=== PATIENT | female | born 1945 | race Caucasian/White ===

== ENCOUNTER 2018-08-03 11:49 | Inpatient (IN) | payer MEDICARE, OTHER ==
[~2018-08-03 11:49] MED LIST: ISOVUE-370 76%-LOCM 1 ML ONE
[2018-08-03 12:30] LABS: #Basophils 0.1 thou/uL (0.0-0.2); #Eosinphils 0.2 thou/uL (0.0-0.7); #Lymphocytes 3.1 thou/uL (1.20-3.40); #Monocytes 0.8 thou/uL (0.11-0.59); %Basophils 0.8 % (0.0-1.0); %Lymphocytes 19.2 % (21.0-51.0); %Monocytes 4.7 % (0.0-10.0); %Neutrophils 74.3 % (42.0-75.0); Hemoglobin 13.1 g/dL (12.0-16.0); Mean Corpuscular HGB CONC 33.3 g/dL (32.0-36.0); Mean Corpuscular Hemoglobin 29.2 pg (27.0-31.0); Mean Corpuscular Volume 87.7 fL (78.0-98.0); Mean Platelet Volume 7.9 fL (7.4-10.4); Platelet Count 290 thou/uL (130-400); RBC Distribution Width 11.2 % (11.5-14.5); Red Blood Cell (RBC) Count 4.47 mill/uL (4.20-5.40); White Blood Cell (WBC) Count 16.1 thou/uL (4.8-10.8)
[2018-08-03] MEDS ORDERED: Ondansetron PF 4 MG/2 ML Vial ONE ×3 (12:38→14:47)
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
[2018-08-03 12:50] LABS: ALT (SGPT) 18 U/L (8-55); AST (SGOT) 24 U/L (5-34); Albumin 4.1 g/dL (3.4-4.8); Alkaline Phosphatase 90 U/L (40-150); Anion Gap 14 mmol/L (10-20); BUN (Urea Nitrogen) 14 mg/dL (9.8-20.1); Bilirubin, Total 0.5 mg/dL (0.2-1.2); Calc. Creatinine Clearance 0 mL/min (70-130); Calcium 9.2 mg/dL (7.8-10.44); Carbon Dioxide 22 mmol/L (23-31); Chloride 105 mmol/L (98-107); Estimated GFR-MDRD 62; Globulin 2.6 g/dL (2.4-3.5); Glucose 157 mg/dL (83-110); Potassium 3.3 mmol/L (3.5-5.1); Protein, Total 6.7 g/dL (6.0-8.3); Sodium 138 mmol/L (136-145)
[2018-08-03 13:21] LABS: Prothrombin Time 13.6 SEC (12.0-14.7)
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
[2018-08-03 13:39] LABS: PTT 26.8 SEC (22.9-36.1)
[2018-08-03] MEDS ORDERED: Ketorolac Tromethamine 30 MG/ML VIAL ONE ×2 (13:47→23:26)
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
[2018-08-03] MEDS ORDERED: Hydrocortisone Sod Succ/PF 100 mg/2 ml Vial ONE (14:03)
[2018-08-03] MEDS ORDERED: Hydrocortisone Sod Succ/PF 100 mg/2 ml Vial IVP SCH (14:15)
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
[2018-08-03] MEDS ORDERED: Morphine 4 MG/ML VIAL SLOW IVP PRN (14:39)
[2018-08-03] MEDS ORDERED: Dextrose 50% Abboject 50 ML SYRINGE SLOW IVP PRN (14:39)
[2018-08-03] MEDS ORDERED: Dextrose 5% in Water 1,000 ML IV PRN (14:39)
[2018-08-03] MEDS ORDERED: Ondansetron ODT 4 MG TAB PO PRN (14:39)
[2018-08-03] MEDS ORDERED: traMADol HCl 50 MG TAB PO PRN (14:39)
[2018-08-03 14:44] LABS: Hemoglobin 12.6 g/dL (12.0-16.0); Platelet Count 195 thou/uL (130-400)
[2018-08-03] MEDS ORDERED: Calcium Chloride 1 GM/10 ML Abboject SYRINGE ONE (14:46)
[2018-08-03] MEDS ORDERED: Adacel (T-DAP) 0.5 ML SYRINGE ONE (15:19)
[2018-08-03] MEDS ORDERED: CEFAZOLIN 2 GM in Premix Bag 1 BAG IVPB SCH (15:30)
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
[2018-08-03 15:45] LABS: Bilirubin Negative (Negative); Blood, Urine Negative (Negative); Clarity CLEAR (Clear); Glucose, Urine (Dipstick) Negative (Negative); Leukocyte Trace (Negative); Nitrite Negative (Negative); Protein, Urine (Dipstick) Negative (Neg-Trace); Urobilinogen 0.2 mg/dL (0.2-1.0)
[2018-08-03 15:47] LABS: Bacteria/HPF 1+ HPF (None Seen); Hyaline Casts/LPF 0-3 HYALINE CAST LPF (0-3 Hyaline); RBC/HPF 0-3 HPF (0-3); Squamous Epithelial 0-3 HPF (0-3)
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
[2018-08-03] MEDS: traMADol HCl 50 MG TAB PO SCH (17:40)
[2018-08-03] MEDS: Ketorolac Tromethamine 30 MG/ML VIAL IVP SCH (17:41)
[2018-08-03 17:42] LABS: Lactic Acid 2.8 mmol/L (0.5-2.2)
[2018-08-03] MEDS: Lactated Ringer's 1,000 ML IV SCH (17:42)
[2018-08-03] MEDS: Acetaminophen 1,000 MG in Premix Bag 1 BAG IVPB SCH (17:56)
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
[2018-08-03] MEDS ORDERED: traMADol HCl 50 MG TAB ONE (23:25)
[2018-08-04] MEDS ORDERED: Ketorolac Tromethamine 30 MG/ML VIAL ONE (05:33)
[2018-08-04] MEDS ORDERED: traMADol HCl 50 MG TAB ONE (05:34)
[2018-08-04] MEDS ORDERED: Ondansetron PF 4 MG/2 ML Vial ONE ×2 (06:57→16:35)
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
[2018-08-04] MEDS ORDERED: Loratadine 10 MG TAB PO SCH (09:00)
[2018-08-04] MEDS: Senokot S 8.6-50 MG TAB PO SCH ×4 (09:10→22:22)
[2018-08-04] MEDS: Famotidine/PF 20 mg/2ml Vial SLOW IVP SCH ×3 (09:10→22:21)
[2018-08-04] MEDS: Acetaminophen 1,000 MG in Premix Bag 1 BAG IVPB SCH ×3 (09:14→11:48)
[2018-08-04] MEDS: Lactated Ringer's 1,000 ML IV SCH ×2 (09:15→21:59)
[2018-08-04] MEDS: traMADol HCl 50 MG TAB PO SCH ×4 (09:15→21:59)
[2018-08-04] MEDS: Ketorolac Tromethamine 30 MG/ML VIAL IVP SCH ×3 (09:16→20:22)
[2018-08-04] MEDS: Polyethylene Glycol 3350 17 GM Packet PO SCH (09:29)
[2018-08-04] MEDS ORDERED: Senokot S 8.6-50 MG TAB ONE (09:56)
[2018-08-04] MEDS: Ondansetron PF 4 MG/2 ML Vial IVP PRN (11:23)
--- NOTE | 2018-08-04 11:53 | RAD ---
CHEST ONE VIEW: HISTORY: Chest pain. COMPARISON: Chest radiographs from the prior day. FINDINGS: Heart size is enlarged. No pneumothorax. No effusion. No focal consolidation. Severe degenerative changes of both shoulders. IMPRESSION: No acute intrathoracic abnormality. POS: [facility]
[2018-08-04] MEDS ORDERED: Sodium Chloride 0.9% 500 ML IV SCH (12:15)
[2018-08-04] MEDS ORDERED: Neomycin-Polymyxin 1 ML AMP ONE (13:31)
[2018-08-04] MEDS ORDERED: Fentanyl 100 MCG/2 ML VIAL ONE ×4 (14:01→19:15)
[2018-08-04 14:02] LABS: #Lymphocytes 1.9 thou/uL (1.20-3.40); #Monocytes 0.9 thou/uL (0.11-0.59); #Neutrophils 9.9 thou/uL (1.40-6.50); %Basophils 0.3 % (0.0-1.0); %Eosinophils 0.1 % (0.0-10.0); %Lymphocytes 14.8 % (21.0-51.0); %Monocytes 7.1 % (0.0-10.0); %Neutrophils 77.6 % (42.0-75.0); Mean Corpuscular HGB CONC 33.5 g/dL (32.0-36.0); Mean Corpuscular Hemoglobin 29.4 pg (27.0-31.0); Mean Corpuscular Volume 87.6 fL (78.0-98.0); Mean Platelet Volume 8.1 fL (7.4-10.4); Platelet Count 166 thou/uL (130-400); Red Blood Cell (RBC) Count 3.41 mill/uL (4.20-5.40); White Blood Cell (WBC) Count 12.7 thou/uL (4.8-10.8)
[2018-08-04 14:23] LABS: Anion Gap 12 mmol/L (10-20); BUN (Urea Nitrogen) 24 mg/dL (9.8-20.1); Calc. Creatinine Clearance 55 mL/min (70-130); Calcium 8.7 mg/dL (7.8-10.44); Carbon Dioxide 24 mmol/L (23-31); Chloride 106 mmol/L (98-107); Estimated GFR-MDRD 47; Glucose 107 mg/dL (83-110); Magnesium 1.5 mg/dL (1.6-2.6); Sodium 138 mmol/L (136-145)
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
[2018-08-04] MEDS ORDERED: Dexamethasone 20 MG/5 ML VIAL ONE (16:35)
[2018-08-04] MEDS ORDERED: PROPOFOL 200 MG/20 ML VIAL ONE (16:35)
[2018-08-04] MEDS ORDERED: PHENYLEPHRINE-NS 100 MCG/ML 10 ML SYRINGE ONE (16:35)
[2018-08-04] MEDS ORDERED: Rocuronium Bromide 10 MG/ML (10ML VIAL) ONE (16:35)
[2018-08-04] MEDS ORDERED: Succinylcholine Chloride 20 MG/ML 10 ml SYRINGE FS ONE (16:35)
[2018-08-04] MEDS ORDERED: Lidocaine 1% PF 5 ML VIAL ONE (16:35)
[2018-08-04] MEDS ORDERED: Metoclopramide HCl 10 MG/2 ML VIAL ONE ×2 (16:35→17:34)
[2018-08-04] MEDS ORDERED: Glycopyrrolate 0.2 MG/ML 5 ML SYRINGE ONE (16:35)
[2018-08-04] MEDS ORDERED: ePHEDrine 50 MG/ML VIAL ONE (16:35)
[2018-08-04] MEDS ORDERED: Magnesium Sulfate 4 GM in Sodium Chloride 0.9% 250 ML 250 ML IVPB SCH (17:15)
[2018-08-04] MEDS ORDERED: Phenylephrine HCL 10 MG/ML VIAL ONE (17:34)
[2018-08-04] MEDS ORDERED: HYDROmorphone 2 MG/ML VIAL ONE (18:07)
--- NOTE | 2018-08-04 18:22 | RAD ---
LEFT ANKLE THREE VIEWS: 08/04/18 HISTORY: Intraoperative films. These films shows open reduction and internal fixation of the distal fibular fracture with plate and screws. Comminuted distal tibial fracture is also again noted. IMPRESSION: Open reduction and internal fixation of distal fibular fracture. POS: OFF
--- NOTE | 2018-08-04 18:28 | RAD ---
RIGHT FEMUR TWO VIEWS: 08/04/18 HISTORY: Intraoperative film. There has been open reduction and internal fixation of a more distal femur fracture with plate and sc rews. IMPRESSION: Open reduction and internal fixation of comminuted distal femoral shaft fracture. POS: OFF
[2018-08-04] MEDS ORDERED: Meperidine HCl/PF 25 MG/ML VIAL SLOW IVP PRN (18:37)
[2018-08-04] MEDS ORDERED: Promethazine HCl 25 MG/ML VIAL IM PRN (18:37)
[2018-08-04] MEDS ORDERED: Promethazine HCl 25 MG/ML VIAL SLOW IVP PRN (18:37)
[2018-08-04] MEDS ORDERED: PACU-Morphine 4MG/ML VIAL SLOW IVP PRN (18:37)
[2018-08-04 18:44] LABS: #Lymphocytes 2.1 thou/uL (1.20-3.40); #Monocytes 0.9 thou/uL (0.11-0.59); #Neutrophils 9.3 thou/uL (1.40-6.50); %Basophils 0.4 % (0.0-1.0); %Eosinophils 0.1 % (0.0-10.0); %Lymphocytes 17.1 % (21.0-51.0); %Neutrophils 75.4 % (42.0-75.0); Hemoglobin 8.6 g/dL (12.0-16.0); Mean Corpuscular HGB CONC 32.4 g/dL (32.0-36.0); Mean Corpuscular Hemoglobin 28.6 pg (27.0-31.0); Mean Corpuscular Volume 88.1 fL (78.0-98.0); Mean Platelet Volume 7.6 fL (7.4-10.4); Platelet Count 142 thou/uL (130-400); RBC Distribution Width 14.1 % (11.5-14.5); White Blood Cell (WBC) Count 12.4 thou/uL (4.8-10.8)
[2018-08-04] MEDS ORDERED: Propofol 500 MG/50 ML VIAL ONE (19:14)
[2018-08-04] MEDS ORDERED: PROPOFOL 20 ML ONE (19:14)
[2018-08-04] MEDS ORDERED: Rocuronium Bromide 50 MG/5 ML VIAL ONE (19:15)
[2018-08-04] MEDS ORDERED: Lorazepam 2 MG/ML VIAL SLOW IVP PRN ×2 (19:25→20:40)
[2018-08-04] MEDS ORDERED: Propofol BOLUS 1,000 MG/100 ML VIAL IV PRN ×2 (19:25→20:40)
[2018-08-04] MEDS ORDERED: Fentanyl BOLUS 250 ML IVPB PRN ×2 (19:25→20:40)
[2018-08-04] MEDS ORDERED: Morphine 2 MG/ML SYRINGE SLOW IVP PRN ×2 (19:25→20:40)
[2018-08-04] MEDS ORDERED: fentaNYL Citrate/PF 2,000 MCG in Sodium Chloride 0.9% 60 ML IV SCH ×2 (19:25→19:38)
[2018-08-04] MEDS ORDERED: DISCONTINUE PREVIOUS NARCOTIC PAIN MEDICATIONS AND BENZODIAZEPINES FS SCH ×2 (19:25→20:40)
[2018-08-04] MEDS ORDERED: Ventilator Sedation Protocol 1 EACH FS SCH (19:30)
[2018-08-04] MEDS ORDERED: Propofol 1,000 MG/100 ML VIAL IV PRN (19:38)
[2018-08-04 19:49] LABS: Hemoglobin 11.8 g/dL (12.0-16.0); Red Blood Cell (RBC) Count 4.18 mill/uL (4.20-5.40); White Blood Cell (WBC) Count 14.1 thou/uL (4.8-10.8)
[2018-08-04 19:50] LABS: #Lymphocytes 1.8 thou/uL (1.20-3.40); #Neutrophils 11.2 thou/uL (1.40-6.50); %Basophils 0.1 % (0.0-1.0); %Lymphocytes 12.9 % (21.0-51.0); %Monocytes 7.4 % (0.0-10.0); %Neutrophils 79.6 % (42.0-75.0); Mean Corpuscular HGB CONC 32.7 g/dL (32.0-36.0); Mean Corpuscular Hemoglobin 28.4 pg (27.0-31.0); Mean Corpuscular Volume 86.7 fL (78.0-98.0); Mean Platelet Volume 8.3 fL (7.4-10.4); Platelet Count 185 thou/uL (130-400); RBC Distribution Width 14.2 % (11.5-14.5)
[2018-08-04 19:51] LABS: INR-International Normal Ratio 1.2; PTT 29.3 SEC (22.9-36.1)
--- NOTE | 2018-08-04 19:51 | RAD ---
PORTABLE CHEST: 08/04/18 HISTORY: Intubation. Heart size is borderline. The aorta is tortuous. Endotracheal tube is in satisfactory position. Subse gmental atelectatic changes are see in the lung bases. A right humeral neck fracture is present. IMPRESSION: 1. Endotracheal tube in satisfactory position. 2. Bibasilar atelectasis. POS: OFF
[2018-08-04 20:00] LABS: Anion Gap 12 mmol/L (10-20); BUN (Urea Nitrogen) 19 mg/dL (9.8-20.1); Carbon Dioxide 21 mmol/L (23-31); Chloride 104 mmol/L (98-107); Sodium 133 mmol/L (136-145)
[2018-08-04 20:01] LABS: ALT (SGPT) 17 U/L (8-55); AST (SGOT) 26 U/L (5-34); Albumin 3.4 g/dL (3.4-4.8); Alkaline Phosphatase 66 U/L (40-150); Bilirubin, Total 0.7 mg/dL (0.2-1.2); Calc. Creatinine Clearance 64 mL/min (70-130); Calcium 9.2 mg/dL (7.8-10.44); Estimated GFR-MDRD 56; Globulin 2.1 g/dL (2.4-3.5); Glucose 145 mg/dL (83-110); Protein, Total 5.5 g/dL (5.8-8.1)
[2018-08-04 20:33] LABS: Actual Bicarbonate (HCO3a) 22.1 mEq/L (22-28); Base Excess (BEa) -4.4 mEq/L (-2.0 to +3.0); CO2 Tension 46.7 mmHg (35.0-45.0); Calcium, Ionized 1.13 mmol/L (1.12-1.30); Carboxyhemoglobin (COHb) 0.4 gm% (0.0-3.0); O2 Tension (PaO2) 69.8 mmHg (> 70.0); Potassium - ABG Lab 4.31 mmol/L (3.70-5.30); pH, Arterial 7.29 (7.35-7.45)
[2018-08-04 20:41] LABS: ALV-art Gradient 228.325 (0-20); Puncture Site LBA
[2018-08-04] MEDS ORDERED: Sodium Chloride 0.9% 1,000 ML IV SCH (21:30)
[2018-08-04] MEDS: Melatonin 3 MG TAB PO SCH (21:54)
[2018-08-04] MEDS ORDERED: CEFAZOLIN 1 GM in Sodium Chloride 0.9% 100 ML IVPB SCH (22:00)
[2018-08-04] MEDS: Simvastatin 5 MG TAB PO SCH (22:22)
[2018-08-04] MEDS: ceFAZolin 1 GM/D5W 1 GM in Premix Bag 1 BAG IVPB SCH (22:26)
[2018-08-05 00:16] LABS: #Lymphocytes 0.9 thou/uL (1.20-3.40); #Monocytes 0.4 thou/uL (0.11-0.59); #Neutrophils 10.2 thou/uL (1.40-6.50); %Basophils 0.2 % (0.0-1.0); %Eosinophils 0.1 % (0.0-10.0); %Lymphocytes 7.9 % (21.0-51.0); %Monocytes 3.8 % (0.0-10.0); %Neutrophils 88.1 % (42.0-75.0); Hemoglobin 10.7 g/dL (12.0-16.0); Mean Corpuscular HGB CONC 33.8 g/dL (32.0-36.0); Mean Corpuscular Hemoglobin 30.5 pg (27.0-31.0); Mean Corpuscular Volume 90.3 fL (78.0-98.0); Mean Platelet Volume 7.9 fL (7.4-10.4); Platelet Count 128 thou/uL (130-400); Red Blood Cell (RBC) Count 3.51 mill/uL (4.20-5.40); White Blood Cell (WBC) Count 11.6 thou/uL (4.8-10.8)
[2018-08-05] MEDS: Propofol 1,000 MG/100 ML VIAL IV PRN ×2 (02:17→12:01)
[2018-08-05] MEDS: Sodium Chloride 0.9% 1,000 ML IV SCH ×3 (03:06→19:49)
[2018-08-05] MEDS: ceFAZolin 1 GM/D5W 1 GM in Premix Bag 1 BAG IVPB SCH ×2 (06:20→14:39)
[2018-08-05 06:44] LABS: #Monocytes 0.6 thou/uL (0.11-0.59); #Neutrophils 7.9 thou/uL (1.40-6.50); %Basophils 0.2 % (0.0-1.0); %Eosinophils 0.1 % (0.0-10.0); %Lymphocytes 10.7 % (21.0-51.0); %Monocytes 5.9 % (0.0-10.0); %Neutrophils 83.1 % (42.0-75.0); Hemoglobin 9.2 g/dL (12.0-16.0); Mean Corpuscular HGB CONC 34.2 g/dL (32.0-36.0); Mean Corpuscular Hemoglobin 30.6 pg (27.0-31.0); Mean Corpuscular Volume 89.5 fL (78.0-98.0); Platelet Count 114 thou/uL (130-400); RBC Distribution Width 13.9 % (11.5-14.5); White Blood Cell (WBC) Count 9.5 thou/uL (4.8-10.8)
[2018-08-05 06:58] LABS: Lactic Acid 2.3 mmol/L (0.5-2.2)
[2018-08-05 07:11] LABS: Anion Gap 7 mmol/L (10-20); BUN (Urea Nitrogen) 20 mg/dL (9.8-20.1); CK (CPK) 589 U/L (29-168); Calc. Creatinine Clearance 81 mL/min (70-130); Calcium 7.6 mg/dL (7.8-10.44); Carbon Dioxide 24 mmol/L (23-31); Chloride 112 mmol/L (98-107); Estimated GFR-MDRD 69; Glucose 113 mg/dL (83-110); Magnesium 2.1 mg/dL (1.6-2.6); Phosphorus 2.1 mg/dL (2.3-4.7); Potassium 3.7 mmol/L (3.5-5.1); Sodium 139 mmol/L (136-145)
[2018-08-05] MEDS ORDERED: Potassium Phosphate 30 MMOL in Sodium Chloride 0.9% 500 ML IVPB SCH (07:30)
--- NOTE | 2018-08-05 07:54 | RAD ---
SINGLE VIEW OF THE CHEST: COMPARISON: 08/04/2018. HISTORY: Intubated patient with respiratory failure. FINDINGS: A single view of the chest shows a cardiomediastinal silhouette which is upper limits of normal in si ze. The endotracheal tube and NG tubes are in good position. There is no evidence of consolidation, mass, or pleural effusion. Degenerative changes are seen in the spine and shoulders. IMPRESSION: Stable exam. POS: [facility]
[2018-08-05] MEDS ORDERED: Magnesium Sulfate 3 GM in Sodium Chloride 0.9% 100 ML IVPB SCH (08:00)
[2018-08-05] MEDS: Famotidine/PF 20 mg/2ml Vial SLOW IVP SCH ×2 (09:32→20:51)
[2018-08-05] MEDS: Polyethylene Glycol 3350 17 GM Packet PO SCH (09:32)
[2018-08-05] MEDS: Citalopram 20 MG TAB PO SCH (09:33)
[2018-08-05] MEDS: Senokot S 8.6-50 MG TAB PO SCH ×2 (09:33→20:51)
[2018-08-05] MEDS: Cetirizine HCl 10 MG TAB PO SCH (09:41)
[2018-08-05] MEDS: Ampicillin 2 GM in Sodium Chloride 0.9% 100 ML IVPB SCH ×3 (12:02→23:02)
[2018-08-05] MEDS ORDERED: Furosemide 20 MG/2 ML VIAL SLOW IVP SCH (13:00)
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
[2018-08-05] MEDS: Acetaminophen 1,000 MG in Premix Bag 1 BAG IVPB PRN (20:49)
[2018-08-05] MEDS: Simvastatin 5 MG TAB PO SCH (20:50)
[2018-08-05] MEDS: Melatonin 3 MG TAB PO SCH (22:05)
[2018-08-06] MEDS: Sodium Chloride 0.9% 1,000 ML IV SCH ×3 (03:34→20:25)
[2018-08-06 03:39] LABS: #Lymphocytes 1.5 thou/uL (1.20-3.40); #Monocytes 0.8 thou/uL (0.11-0.59); #Neutrophils 7.5 thou/uL (1.40-6.50); %Basophils 0.3 % (0.0-1.0); %Eosinophils 0.1 % (0.0-10.0); %Lymphocytes 14.7 % (21.0-51.0); %Monocytes 8.5 % (0.0-10.0); %Neutrophils 76.4 % (42.0-75.0); Mean Corpuscular HGB CONC 33.3 g/dL (32.0-36.0); Mean Corpuscular Volume 90.4 fL (78.0-98.0); Mean Platelet Volume 7.6 fL (7.4-10.4); Platelet Count 125 thou/uL (130-400); RBC Distribution Width 14.1 % (11.5-14.5); Red Blood Cell (RBC) Count 3.01 mill/uL (4.20-5.40); White Blood Cell (WBC) Count 9.9 thou/uL (4.8-10.8)
[2018-08-06 04:04] LABS: Anion Gap 9 mmol/L (10-20); BUN (Urea Nitrogen) 18 mg/dL (9.8-20.1); Calc. Creatinine Clearance 84 mL/min (70-130); Calcium 7.8 mg/dL (7.8-10.44); Carbon Dioxide 27 mmol/L (23-31); Chloride 109 mmol/L (98-107); Estimated GFR-MDRD 72; Glucose 98 mg/dL (83-110); Magnesium 2.4 mg/dL (1.6-2.6); Phosphorus 2.6 mg/dL (2.3-4.7); Sodium 141 mmol/L (136-145)
[2018-08-06] MEDS: Ampicillin 2 GM in Sodium Chloride 0.9% 100 ML IVPB SCH ×4 (05:28→23:38)
[2018-08-06] MEDS: Enoxaparin Sodium 40 MG/0.4 ML SYRINGE SC SCH (09:17)
[2018-08-06] MEDS: Citalopram 20 MG TAB PO SCH (09:18)
[2018-08-06] MEDS: Polyethylene Glycol 3350 17 GM Packet PO SCH (09:18)
[2018-08-06] MEDS: Famotidine/PF 20 mg/2ml Vial SLOW IVP SCH ×2 (09:18→20:18)
[2018-08-06] MEDS: Senokot S 8.6-50 MG TAB PO SCH ×2 (09:18→21:26)
[2018-08-06] MEDS: Cetirizine HCl 10 MG TAB PO SCH (09:24)
--- NOTE | 2018-08-06 09:40 | EKG ---
Test Reason : Blood Pressure : / mmHG Vent. Rate : 068 BPM Atrial Rate : 068 BPM P-R Int : 142 ms QRS Dur : 088 ms QT Int : 484 ms P-R-T Axes : 018 -13 004 degrees QTc Int : 514 ms Normal sinus rhythm Nonspecific T wave abnormality Prolonged QT Abnormal ECG Confirmed by YUNIEL CALERO ([id number]), food expeditor NIELS VINES ([id number]) on 08/06/2018 9:40:22 AM Referred By: Confirmed By:YUNIEL CALERO
[2018-08-06] MEDS ORDERED: Furosemide 20 MG/2 ML VIAL SLOW IVP SCH ×2 (10:15→10:30)
--- NOTE | 2018-08-06 10:21 | RAD ---
EXAM: Portable chest PROVIDED CLINICAL HISTORY: Respiratory insufficiency COMPARISON: 08/05/2018 FINDINGS: Significant interval change with respect to the prior examination is not apparent. IMPRESSION: As above.
[2018-08-06] MEDS: Acetaminophen 1,000 MG in Premix Bag 1 BAG IVPB PRN (10:39)
[2018-08-06] MEDS ORDERED: Ibuprofen 600 MG TAB PO PRN (12:12)
[2018-08-06] MEDS ORDERED: Morphine 2 MG/ML SYRINGE SLOW IVP PRN (12:13)
[2018-08-06 12:48] LABS: Actual Bicarbonate (HCO3a) 25.2 mEq/L (22-28); Base Excess (BEa) 0.4 mEq/L (-2.0 to +3.0); CO2 Tension 40.9 mmHg (35.0-45.0); Carboxyhemoglobin (COHb) 0.8 gm% (0.0-3.0); Hemoglobin (Hb) 9.6 g/dL (12.0-16.0); O2 Tension (PaO2) 57.5 mmHg (> 70.0); Potassium - ABG Lab 3.78 mmol/L (3.70-5.30); pH, Arterial 7.41 (7.35-7.45)
[2018-08-06 12:49] LABS: ALV-art Gradient 176.575 (0-20); Puncture Site LRA
[2018-08-06] MEDS: Acetaminophen 500 MG TAB PO SCH ×3 (13:14→23:39)
[2018-08-06] MEDS: traMADol HCl 50 MG TAB PO SCH ×3 (13:15→23:39)
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
[2018-08-06] MEDS: traMADol HCl 50 MG TAB PO PRN (16:33)
[2018-08-06] MEDS: Ondansetron PF 4 MG/2 ML Vial IVP PRN (16:35)
[2018-08-06] MEDS: Simvastatin 5 MG TAB PO SCH (21:25)
[2018-08-07] MEDS: Ampicillin 2 GM in Sodium Chloride 0.9% 100 ML IVPB SCH ×3 (06:39→17:32)
[2018-08-07] MEDS: Sodium Chloride 0.9% 1,000 ML IV SCH ×2 (06:39→17:32)
[2018-08-07 06:41] LABS: #Eosinphils 0.2 thou/uL (0.0-0.7); #Lymphocytes 1.9 thou/uL (1.20-3.40); #Monocytes 0.8 thou/uL (0.11-0.59); #Neutrophils 6.1 thou/uL (1.40-6.50); %Basophils 0.4 % (0.0-1.0); %Eosinophils 1.9 % (0.0-10.0); %Lymphocytes 20.9 % (21.0-51.0); %Monocytes 8.5 % (0.0-10.0); %Neutrophils 68.2 % (42.0-75.0); Hemoglobin 9.8 g/dL (12.0-16.0); Mean Corpuscular HGB CONC 32.5 g/dL (32.0-36.0); Mean Corpuscular Volume 92.2 fL (78.0-98.0); Mean Platelet Volume 8.2 fL (7.4-10.4); Platelet Count 171 thou/uL (130-400); RBC Distribution Width 14.1 % (11.5-14.5); Red Blood Cell (RBC) Count 3.26 mill/uL (4.20-5.40)
[2018-08-07] MEDS: Acetaminophen 500 MG TAB PO SCH ×3 (06:42→17:31)
[2018-08-07] MEDS: traMADol HCl 50 MG TAB PO SCH ×3 (06:42→17:31)
[2018-08-07 06:59] LABS: Anion Gap 13 mmol/L (10-20); BUN (Urea Nitrogen) 19 mg/dL (9.8-20.1); Calc. Creatinine Clearance 99 mL/min (70-130); Calcium 8.3 mg/dL (7.8-10.44); Carbon Dioxide 22 mmol/L (23-31); Chloride 110 mmol/L (98-107); Estimated GFR-MDRD 81; Glucose 78 mg/dL (83-110); Magnesium 2.1 mg/dL (1.6-2.6); Phosphorus 2.2 mg/dL (2.3-4.7); Potassium 3.8 mmol/L (3.5-5.1); Sodium 141 mmol/L (136-145)
[2018-08-07] MEDS ORDERED: Potassium Phosphate 15 MMOL in Sodium Chloride 0.9% 250 ML 250 ML IVPB SCH (07:30)
[2018-08-07] MEDS: Senokot S 8.6-50 MG TAB PO SCH ×2 (09:04→20:26)
[2018-08-07] MEDS: Citalopram 20 MG TAB PO SCH (09:04)
[2018-08-07] MEDS: Famotidine/PF 20 mg/2ml Vial SLOW IVP SCH ×2 (09:05→20:26)
[2018-08-07] MEDS: Cetirizine HCl 10 MG TAB PO SCH (09:05)
[2018-08-07] MEDS: Enoxaparin Sodium 40 MG/0.4 ML SYRINGE SC SCH (09:06)
[2018-08-07] MEDS: Polyethylene Glycol 3350 17 GM Packet PO SCH (09:06)
[2018-08-07] MEDS ORDERED: Furosemide 40 MG/4 ML VIAL SLOW IVP SCH (12:30)
[2018-08-07] MEDS ORDERED: Furosemide 40 MG/4 ML VIAL ONE (12:32)
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
[2018-08-07] MEDS: Simvastatin 5 MG TAB PO SCH (20:26)
[2018-08-07] MEDS: traMADol HCl 50 MG TAB PO PRN (21:32)
[2018-08-08] MEDS: Sodium Chloride 0.9% 1,000 ML IV SCH ×2 (00:51→05:35)
[2018-08-08] MEDS: Ampicillin 2 GM in Sodium Chloride 0.9% 100 ML IVPB SCH ×2 (00:52→05:34)
[2018-08-08] MEDS: traMADol HCl 50 MG TAB PO SCH ×5 (00:54→23:47)
[2018-08-08] MEDS: Acetaminophen 500 MG TAB PO SCH ×5 (00:55→23:46)
[2018-08-08 05:27] LABS: #Eosinphils 0.2 thou/uL (0.0-0.7); #Lymphocytes 1.3 thou/uL (1.20-3.40); #Monocytes 0.6 thou/uL (0.11-0.59); #Neutrophils 5.5 thou/uL (1.40-6.50); %Basophils 0.4 % (0.0-1.0); %Lymphocytes 16.7 % (21.0-51.0); %Monocytes 7.8 % (0.0-10.0); %Neutrophils 72.1 % (42.0-75.0); Hemoglobin 8.9 g/dL (12.0-16.0); Mean Corpuscular Hemoglobin 30.4 pg (27.0-31.0); Mean Platelet Volume 7.4 fL (7.4-10.4); Platelet Count 195 thou/uL (130-400); Red Blood Cell (RBC) Count 2.94 mill/uL (4.20-5.40); White Blood Cell (WBC) Count 7.6 thou/uL (4.8-10.8)
[2018-08-08 05:49] LABS: Anion Gap 11 mmol/L (10-20); BUN (Urea Nitrogen) 19 mg/dL (9.8-20.1); Calc. Creatinine Clearance 107 mL/min (70-130); Calcium 8.5 mg/dL (7.8-10.44); Carbon Dioxide 28 mmol/L (23-31); Chloride 107 mmol/L (98-107); Estimated GFR-MDRD 88; Glucose 105 mg/dL (83-110); Potassium 3.5 mmol/L (3.5-5.1); Sodium 142 mmol/L (136-145)
[2018-08-08] MEDS: Polyethylene Glycol 3350 17 GM Packet PO SCH (09:50)
[2018-08-08] MEDS: AMOXicillin 250 MG CAP PO SCH ×3 (09:50→20:50)
[2018-08-08] MEDS: Senokot S 8.6-50 MG TAB PO SCH ×2 (09:51→20:50)
[2018-08-08] MEDS: Furosemide 20 MG/2 ML VIAL SLOW IVP SCH ×3 (09:51→20:58)
[2018-08-08] MEDS: Enoxaparin Sodium 40 MG/0.4 ML SYRINGE SC SCH (09:51)
[2018-08-08] MEDS: Citalopram 20 MG TAB PO SCH (09:51)
[2018-08-08] MEDS: Cetirizine HCl 10 MG TAB PO SCH (09:52)
[2018-08-08] MEDS ORDERED: Potassium Phosphate 30 MMOL in Sodium Chloride 0.9% 500 ML IVPB SCH ×2 (14:15→14:30)
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
[2018-08-08] MEDS: Simvastatin 5 MG TAB PO SCH (20:48)
[2018-08-08] MEDS: traMADol HCl 50 MG TAB PO PRN (20:50)
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
[2018-08-09] MEDS: Acetaminophen 500 MG TAB PO SCH (05:15)
[2018-08-09] MEDS: traMADol HCl 50 MG TAB PO SCH (05:15)
[2018-08-09 08:17] LABS: Phosphorus 3.1 mg/dL (2.3-4.7)
[2018-08-09 08:18] LABS: Anion Gap 14 mmol/L (10-20); BUN (Urea Nitrogen) 16 mg/dL (9.8-20.1); Calc. Creatinine Clearance 113 mL/min (70-130); Calcium 8.5 mg/dL (7.8-10.44); Carbon Dioxide 26 mmol/L (23-31); Chloride 102 mmol/L (98-107); Estimated GFR-MDRD Greater than 90; Glucose 83 mg/dL (83-110); Magnesium 1.5 mg/dL (1.6-2.6); Potassium 3.8 mmol/L (3.5-5.1); Sodium 138 mmol/L (136-145)
[2018-08-09 08:47] LABS: Hemoglobin 10.2 g/dL (12.0-16.0); Mean Corpuscular HGB CONC 32.5 g/dL (32.0-36.0); Mean Corpuscular Hemoglobin 29.2 pg (27.0-31.0); Mean Corpuscular Volume 89.7 fL (78.0-98.0); Mean Platelet Volume 7.3 fL (7.4-10.4); Platelet Count 247 thou/uL (130-400); RBC Distribution Width 13.8 % (11.5-14.5); Red Blood Cell (RBC) Count 3.48 mill/uL (4.20-5.40); White Blood Cell (WBC) Count 7.8 thou/uL (4.8-10.8)
[2018-08-09] MEDS ORDERED: Non-Formulary Item 1 EACH (Enalapril/Hydrochlorothiazide [Enalapril-Hctz 10-25 Mg Tablet] PO SCH (09:00)
[2018-08-09] MEDS: Senokot S 8.6-50 MG TAB PO SCH ×2 (09:10→20:37)
[2018-08-09] MEDS: Citalopram 20 MG TAB PO SCH (09:10)
[2018-08-09] MEDS: Enoxaparin Sodium 40 MG/0.4 ML SYRINGE SC SCH (09:11)
[2018-08-09] MEDS: Polyethylene Glycol 3350 17 GM Packet PO SCH (09:12)
[2018-08-09 09:13] LABS: Eosinophils 3 % (0-10); Lymphocytes 24 % (21-51); MDiff Complete? YES; Monocytes 5 % (0-10); Neutrophil 67 % (42-75); Platelet Morphology Comment Appears Adequate; Polychromasia SLIGHT = 2-3 cells (100X) (0-2/hpf); Reactive Lymphocytes 1 % (0-10)
[2018-08-09] MEDS ORDERED: Acetaminophen 500 MG TAB PO SCH (10:07)
[2018-08-09] MEDS: AMOXicillin 250 MG CAP PO SCH ×3 (10:28→20:37)
[2018-08-09] MEDS: Cetirizine HCl 10 MG TAB PO SCH (10:28)
[2018-08-09] MEDS: Hydrochlorothiazide 25 MG TAB PO SCH (10:28)
[2018-08-09] MEDS: Acetaminophen/Codeine 30-300mg Tablet PO SCH ×3 (12:24→20:36)
[2018-08-09] MEDS: Acetaminophen 325 MG TAB PO SCH ×2 (12:25→17:39)
[2018-08-09] MEDS: Acetaminophen/Codeine 30-300mg Tablet PO PRN ×2 (15:17→22:38)
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
[2018-08-09] MEDS: Ondansetron PF 4 MG/2 ML Vial IVP PRN (17:36)
[2018-08-09] MEDS: Simvastatin 5 MG TAB PO SCH (20:36)
[2018-08-10] MEDS: Acetaminophen 325 MG TAB PO SCH ×5 (00:39→23:09)
[2018-08-10] MEDS: Acetaminophen/Codeine 30-300mg Tablet PO SCH ×6 (01:46→21:37)
[2018-08-10 06:35] LABS: Anion Gap 12 mmol/L (10-20); BUN (Urea Nitrogen) 15 mg/dL (9.8-20.1); Calc. Creatinine Clearance 110 mL/min (70-130); Calcium 9.3 mg/dL (7.8-10.44); Carbon Dioxide 28 mmol/L (23-31); Chloride 103 mmol/L (98-107); Estimated GFR-MDRD Greater than 90; Glucose 107 mg/dL (83-110); Magnesium 1.8 mg/dL (1.6-2.6); Phosphorus 3.4 mg/dL (2.3-4.7); Potassium 4.4 mmol/L (3.5-5.1); Sodium 139 mmol/L (136-145)
[2018-08-10] MEDS ORDERED: PHOS-NAK 1 PKT PACK PO SCH (08:00)
[2018-08-10] MEDS ORDERED: Magnesium 2 GM/50 ML 2 GM in Premix Bag 1 BAG IVPB SCH (08:00)
[2018-08-10] MEDS: Senokot S 8.6-50 MG TAB PO SCH ×2 (09:41→21:33)
[2018-08-10] MEDS: Enoxaparin Sodium 40 MG/0.4 ML SYRINGE SC SCH (09:42)
[2018-08-10] MEDS: Citalopram 20 MG TAB PO SCH (09:42)
[2018-08-10] MEDS: Polyethylene Glycol 3350 17 GM Packet PO SCH (09:42)
[2018-08-10] MEDS: Hydrochlorothiazide 25 MG TAB PO SCH (09:42)
[2018-08-10] MEDS: AMOXicillin 250 MG CAP PO SCH (09:42)
[2018-08-10] MEDS: Cetirizine HCl 10 MG TAB PO SCH (09:42)
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
[2018-08-10] MEDS: Simvastatin 5 MG TAB PO SCH (21:36)
[2018-08-10] MEDS ORDERED: Melatonin 3 MG TAB PO SCH (22:15)
[2018-08-11] MEDS: Acetaminophen/Codeine 30-300mg Tablet PO SCH ×6 (00:54→21:46)
[2018-08-11] MEDS: Acetaminophen 325 MG TAB PO SCH (05:54)
[2018-08-11] MEDS: Hydrochlorothiazide 25 MG TAB PO SCH (09:40)
[2018-08-11] MEDS: Citalopram 20 MG TAB PO SCH (09:41)
[2018-08-11] MEDS: Cetirizine HCl 10 MG TAB PO SCH (09:42)
[2018-08-11] MEDS: Enoxaparin Sodium 40 MG/0.4 ML SYRINGE SC SCH (09:43)
[2018-08-11] MEDS: Polyethylene Glycol 3350 17 GM Packet PO SCH (09:43)
[2018-08-11] MEDS: Senokot S 8.6-50 MG TAB PO SCH ×2 (09:43→21:38)
[2018-08-11] MEDS ORDERED: Magnesium Chloride 64 MG TAB PO SCH (11:15)
[2018-08-11] MEDS ORDERED: PHOS-NAK 1 PKT PACK PO SCH (12:30)
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
[2018-08-11] MEDS: Melatonin 3 MG TAB PO SCH (21:38)
[2018-08-11] MEDS: Simvastatin 5 MG TAB PO SCH (21:38)
[2018-08-11] MEDS: Sodium Chloride 0.9% 1,000 ML IV SCH (23:47)
[2018-08-12] MEDS: Acetaminophen/Codeine 30-300mg Tablet PO SCH ×6 (00:29→20:16)
[2018-08-12 06:35] LABS: #Eosinphils 0.3 thou/uL (0.0-0.7); #Lymphocytes 1.6 thou/uL (1.20-3.40); #Monocytes 0.7 thou/uL (0.11-0.59); #Neutrophils 6.3 thou/uL (1.40-6.50); %Basophils 0.3 % (0.0-1.0); %Lymphocytes 17.8 % (21.0-51.0); %Monocytes 8.3 % (0.0-10.0); %Neutrophils 70.6 % (42.0-75.0); Hemoglobin 9.9 g/dL (12.0-16.0); Mean Corpuscular HGB CONC 32.7 g/dL (32.0-36.0); Mean Corpuscular Hemoglobin 29.9 pg (27.0-31.0); Mean Corpuscular Volume 91.4 fL (78.0-98.0); Mean Platelet Volume 6.4 fL (7.4-10.4); Platelet Count 352 thou/uL (130-400); RBC Distribution Width 14.9 % (11.5-14.5); Red Blood Cell (RBC) Count 3.32 mill/uL (4.20-5.40); White Blood Cell (WBC) Count 8.9 thou/uL (4.8-10.8)
[2018-08-12 06:55] LABS: Anion Gap 11 mmol/L (10-20); BUN (Urea Nitrogen) 17 mg/dL (9.8-20.1); Calc. Creatinine Clearance 113 mL/min (70-130); Calcium 9.4 mg/dL (7.8-10.44); Carbon Dioxide 27 mmol/L (23-31); Chloride 103 mmol/L (98-107); Estimated GFR-MDRD Greater than 90; Glucose 109 mg/dL (83-110); Magnesium 1.8 mg/dL (1.6-2.6); Phosphorus 3.6 mg/dL (2.3-4.7); Potassium 4.1 mmol/L (3.5-5.1); Sodium 137 mmol/L (136-145)
[2018-08-12] MEDS: Cetirizine HCl 10 MG TAB PO SCH (08:16)
[2018-08-12] MEDS: Hydrochlorothiazide 25 MG TAB PO SCH (08:16)
[2018-08-12] MEDS: Citalopram 20 MG TAB PO SCH (08:16)
[2018-08-12] MEDS: Enoxaparin Sodium 40 MG/0.4 ML SYRINGE SC SCH (08:18)
[2018-08-12] MEDS: Senokot S 8.6-50 MG TAB PO SCH ×2 (08:18→20:20)
[2018-08-12] MEDS: Polyethylene Glycol 3350 17 GM Packet PO SCH (08:18)
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
[2018-08-12] MEDS ORDERED: ePHEDrine 50 MG/ML VIAL ONE (11:19)
[2018-08-12] MEDS ORDERED: Succinylcholine Chloride 20 MG/ML 10 ml SYRINGE FS ONE (11:19)
[2018-08-12] MEDS ORDERED: Lidocaine 1% PF 5 ML VIAL ONE (11:19)
[2018-08-12] MEDS ORDERED: PROPOFOL 200 MG/20 ML VIAL ONE (11:19)
[2018-08-12] MEDS ORDERED: Glycopyrrolate 0.2 MG/ML 5 ML SYRINGE ONE (11:19)
[2018-08-12] MEDS ORDERED: Ondansetron PF 4 MG/2 ML Vial ONE (11:19)
[2018-08-12] MEDS: Sodium Chloride 0.9% 1,000 ML IV SCH ×2 (14:14→20:29)
[2018-08-12] MEDS ORDERED: Promethazine HCl 25 MG/ML VIAL SLOW IVP PRN (15:11)
[2018-08-12] MEDS ORDERED: Promethazine HCl 25 MG/ML VIAL IM PRN (15:11)
[2018-08-12] MEDS ORDERED: Ondansetron HCl/PF 4 MG/2 ML Vial IVP PRN (15:11)
[2018-08-12] MEDS ORDERED: Midazolam HCl 2 mg/2 ml Vial ONE (15:13)
[2018-08-12] MEDS ORDERED: PHOS-NAK 1 PKT PACK PO SCH (15:15)
[2018-08-12] MEDS ORDERED: Magnesium 2 GM/50 ML 2 GM in Premix Bag 1 BAG IVPB SCH (15:15)
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
[2018-08-12 15:20] LABS: Actual Bicarbonate (HCO3a) 26.4 mEq/L (22-28); CO2 Tension 51.3 mmHg (35.0-45.0); Calcium, Ionized 1.23 mmol/L (1.12-1.30); Carboxyhemoglobin (COHb) 1.6 gm% (0.0-3.0); Hemoglobin (Hb) 10.5 g/dL (12.0-16.0); O2 Tension (PaO2) 109.9 mmHg (> 70.0); Potassium - ABG Lab 4.17 mmol/L (3.70-5.30); pH, Arterial 7.33 (7.35-7.45)
[2018-08-12 15:21] LABS: ALV-art Gradient 538.975 (0-20); Puncture Site LB
[2018-08-12] MEDS ORDERED: Fentanyl 100 MCG/2 ML VIAL ONE ×2 (15:47→16:41)
[2018-08-12] MEDS: Ketorolac Tromethamine 30 MG/ML VIAL IVP SCH (18:40)
[2018-08-12] MEDS: Acetaminophen/Codeine 30-300mg Tablet PO PRN (18:46)
[2018-08-12] MEDS: CEFAZOLIN 2 GM in Premix Bag 1 BAG IVPB SCH (20:15)
[2018-08-12] MEDS: Simvastatin 5 MG TAB PO SCH (20:16)
[2018-08-12] MEDS: Melatonin 3 MG TAB PO SCH (20:16)
[2018-08-12] MEDS: Ondansetron PF 4 MG/2 ML Vial IVP PRN (20:45)
[2018-08-13] MEDS: Acetaminophen/Codeine 30-300mg Tablet PO SCH ×6 (00:55→20:39)
[2018-08-13] MEDS: Ketorolac Tromethamine 30 MG/ML VIAL IVP SCH ×4 (01:03→17:37)
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
[2018-08-13] MEDS: CEFAZOLIN 2 GM in Premix Bag 1 BAG IVPB SCH ×2 (04:25→08:44)
[2018-08-13] MEDS: Sodium Chloride 0.9% 1,000 ML IV SCH ×2 (04:57→12:11)
[2018-08-13 06:36] LABS: #Basophils 0.1 thou/uL (0.0-0.2); #Eosinphils 0.3 thou/uL (0.0-0.7); #Lymphocytes 1.6 thou/uL (1.20-3.40); #Monocytes 1.1 thou/uL (0.11-0.59); #Neutrophils 7.1 thou/uL (1.40-6.50); %Basophils 0.6 % (0.0-1.0); %Eosinophils 2.7 % (0.0-10.0); %Lymphocytes 15.5 % (21.0-51.0); %Monocytes 10.8 % (0.0-10.0); %Neutrophils 70.5 % (42.0-75.0); Hemoglobin 8.9 g/dL (12.0-16.0); Mean Corpuscular HGB CONC 32.4 g/dL (32.0-36.0); Mean Corpuscular Volume 92.6 fL (78.0-98.0); Mean Platelet Volume 6.3 fL (7.4-10.4); Platelet Count 352 thou/uL (130-400); RBC Distribution Width 14.8 % (11.5-14.5); Red Blood Cell (RBC) Count 2.98 mill/uL (4.20-5.40)
[2018-08-13 06:54] LABS: Anion Gap 11 mmol/L (10-20); BUN (Urea Nitrogen) 17 mg/dL (9.8-20.1); Calc. Creatinine Clearance 94 mL/min (70-130); Calcium 8.5 mg/dL (7.8-10.44); Carbon Dioxide 27 mmol/L (23-31); Chloride 101 mmol/L (98-107); Estimated GFR-MDRD 76; Glucose 103 mg/dL (83-110); Magnesium 2.1 mg/dL (1.6-2.6); Phosphorus 4.3 mg/dL (2.3-4.7); Potassium 4.1 mmol/L (3.5-5.1); Sodium 135 mmol/L (136-145)
[2018-08-13] MEDS: Polyethylene Glycol 3350 17 GM Packet PO SCH (09:57)
[2018-08-13] MEDS: Enoxaparin Sodium 40 MG/0.4 ML SYRINGE SC SCH (09:58)
[2018-08-13] MEDS: Cetirizine HCl 10 MG TAB PO SCH (09:59)
[2018-08-13] MEDS: Citalopram 20 MG TAB PO SCH (10:01)
[2018-08-13] MEDS: Senokot S 8.6-50 MG TAB PO SCH ×2 (10:01→20:39)
[2018-08-13] MEDS: Hydrochlorothiazide 25 MG TAB PO SCH (10:02)
[2018-08-13] MEDS ORDERED: diphenhydrAMINE 25 MG CAP PO SCH (20:15)
[2018-08-13] MEDS: Melatonin 3 MG TAB PO SCH (20:38)
[2018-08-13] MEDS: Simvastatin 5 MG TAB PO SCH (20:38)
[2018-08-14] MEDS: Ketorolac Tromethamine 30 MG/ML VIAL IVP SCH ×4 (00:38→17:52)
[2018-08-14] MEDS: Acetaminophen/Codeine 30-300mg Tablet PO SCH ×6 (00:39→21:35)
[2018-08-14] MEDS: Sodium Chloride 0.9% 1,000 ML IV SCH (00:40)
[2018-08-14] MEDS: Cetirizine HCl 10 MG TAB PO SCH (08:38)
[2018-08-14] MEDS: Enoxaparin Sodium 40 MG/0.4 ML SYRINGE SC SCH (08:39)
[2018-08-14] MEDS: Hydrochlorothiazide 25 MG TAB PO SCH (08:39)
[2018-08-14] MEDS: Citalopram 20 MG TAB PO SCH (08:39)
[2018-08-14] MEDS: Senokot S 8.6-50 MG TAB PO SCH ×2 (08:44→21:32)
[2018-08-14] MEDS: Polyethylene Glycol 3350 17 GM Packet PO SCH (08:48)
[2018-08-14] MEDS: Melatonin 3 MG TAB PO SCH (21:32)
[2018-08-14] MEDS: Simvastatin 5 MG TAB PO SCH (21:32)
[2018-08-15] MEDS: Acetaminophen/Codeine 30-300mg Tablet PO SCH ×6 (00:57→20:35)
[2018-08-15] MEDS: Ketorolac Tromethamine 30 MG/ML VIAL IVP SCH ×4 (00:58→18:06)
[2018-08-15] MEDS: Polyethylene Glycol 3350 17 GM Packet PO SCH (09:09)
[2018-08-15] MEDS: Enoxaparin Sodium 40 MG/0.4 ML SYRINGE SC SCH (09:10)
[2018-08-15] MEDS: Cetirizine HCl 10 MG TAB PO SCH (09:10)
[2018-08-15] MEDS: Senokot S 8.6-50 MG TAB PO SCH ×2 (09:10→20:34)
[2018-08-15] MEDS: Hydrochlorothiazide 25 MG TAB PO SCH (09:10)
[2018-08-15] MEDS: Citalopram 20 MG TAB PO SCH (09:10)
[2018-08-15 14:34] LABS: Hemoglobin 8.5 g/dL (12.0-16.0)
[2018-08-15] MEDS ORDERED: Acetaminophen/Codeine 30-300mg Tablet PO SCH (17:45)
[2018-08-15] MEDS: Simvastatin 5 MG TAB PO SCH (20:34)
[2018-08-15] MEDS: Melatonin 3 MG TAB PO SCH (20:34)
[2018-08-16] MEDS: Ketorolac Tromethamine 30 MG/ML VIAL IVP SCH ×3 (00:53→13:28)
[2018-08-16] MEDS: Acetaminophen/Codeine 30-300mg Tablet PO SCH ×4 (00:53→14:33)
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
[2018-08-16] MEDS: Senokot S 8.6-50 MG TAB PO SCH (09:31)
[2018-08-16] MEDS: Polyethylene Glycol 3350 17 GM Packet PO SCH (09:31)
[2018-08-16] MEDS: Enoxaparin Sodium 40 MG/0.4 ML SYRINGE SC SCH (09:31)
[2018-08-16] MEDS: Hydrochlorothiazide 25 MG TAB PO SCH (09:31)
[2018-08-16] MEDS: Citalopram 20 MG TAB PO SCH (09:32)
[2018-08-16] MEDS: Cetirizine HCl 10 MG TAB PO SCH (09:33)
[2018-08-16 10:02] VITALS: BMI 43.2
[2018-08-16] MEDS ORDERED: Ibuprofen 600 MG TAB PO SCH (11:30)
[2018-08-16 16:01] VITALS: BP 163/89; TEMP 98.3
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
== END 2018-08-16 16:01 | DRG 480 ==
LOC: ERS 11:49 → CCU 14:39 → SURG A 08-08 14:17
PROVIDERS: ADMIT Surgery; ATTEND Surgery
PROC: 30233N1 Transfusion of Nonautologous Red Blood Cells into Peripheral Vein, Percutaneous Approach (ICD-10-PCS; 2018-08-03)
PROC: 0QSB04Z Reposition Right Lower Femur with Internal Fixation Device, Open Approach (ICD-10-PCS; principal; 2018-08-04)
PROC: 0QHH05Z Insertion of External Fixation Device into Left Tibia, Open Approach (ICD-10-PCS; 2018-08-04)
PROC: 0QSH04Z Reposition Left Tibia with Internal Fixation Device, Open Approach (ICD-10-PCS; 2018-08-12)
DX: S72.401A Unspecified fracture of lower end of right femur, initial encounter for closed fracture (principal); R57.1 Hypovolemic shock; J96.01 Acute respiratory failure with hypoxia; S82.142A Displaced bicondylar fracture of left tibia, initial encounter for closed fracture; S42.301A Unspecified fracture of shaft of humerus, right arm, initial encounter for closed fracture; S22.42XA Multiple fractures of ribs, left side, initial encounter for closed fracture; D62 Acute posthemorrhagic anemia; N17.9 Acute kidney failure, unspecified; N39.0 Urinary tract infection, site not specified; S72.491A Other fracture of lower end of right femur, initial encounter for closed fracture; S82.872A Displaced pilon fracture of left tibia, initial encounter for closed fracture; E83.39 Other disorders of phosphorus metabolism; S82.402A Unspecified fracture of shaft of left fibula, initial encounter for closed fracture; I10 Essential (primary) hypertension; F32.9 Major depressive disorder, single episode, unspecified; Z90.710 Acquired absence of both cervix and uterus; V89.2XXA Person injured in unspecified motor-vehicle accident, traffic, initial encounter; Y93.89 Activity, other specified; Y92.410 Unspecified street and highway as the place of occurrence of the external cause
CPT/HCPCS: 27810; 27825; 36415; 36416; 36430; 51702; 70450; 71045; 71260; 72125; 74177; 76000; 80048; 80053; 81003; 81015; 82533; 82550; 82805; 83605; 83735; 83880; 84100; 85014; 85018; 85025; 85384; 85610; 85730; 86850; 86900; 86901; 87077; 87086; 87186; 90715; 93005; 94002; 94003; 94640; 94760; 96361; 96374; 96375; 96376; C1713; C1769; G0390; J0131; J0290; J0690; J1100; J1170; J1650; J1720; J1885; J1940; J2001; J2060; J2250; J2370; J2405; J2704; J2765; J3010; J3475; J3490; J7050; J7620; P9016; P9059; Q0163; Q9966; S0028

== ENCOUNTER 2018-10-25 10:58 | Day surgery (SDC) | payer MEDICARE ==
[2018-10-24 12:33] VITALS: BMI 43.2
[2018-10-25 11:48] LABS: #Eosinphils 0.1 thou/uL (0.0-0.7); #Lymphocytes 2.9 thou/uL (1.20-3.40); #Monocytes 0.5 thou/uL (0.11-0.59); #Neutrophils 3.8 thou/uL (1.40-6.50); %Basophils 0.5 % (0.0-1.0); %Eosinophils 1.7 % (0.0-10.0); %Lymphocytes 39.6 % (21.0-51.0); %Monocytes 6.4 % (0.0-10.0); %Neutrophils 51.7 % (42.0-75.0); Hemoglobin 14.3 g/dL (12.0-16.0); Mean Corpuscular HGB CONC 33.9 g/dL (32.0-36.0); Mean Corpuscular Hemoglobin 29.2 pg (27.0-31.0); Mean Corpuscular Volume 86.2 fL (78.0-98.0); Mean Platelet Volume 7.9 fL (7.4-10.4); Platelet Count 250 thou/uL (130-400); RBC Distribution Width 12.5 % (11.5-14.5); Red Blood Cell (RBC) Count 4.88 mill/uL (4.20-5.40); White Blood Cell (WBC) Count 7.4 thou/uL (4.8-10.8)
[2018-10-25] MEDS ORDERED: Fentanyl 100 MCG/2 ML VIAL ONE (11:50)
[2018-10-25] MEDS ORDERED: Famotidine/PF 20 mg/2ml Vial ONE (11:50)
[2018-10-25 12:12] LABS: Anion Gap 14 mmol/L (10-20); BUN (Urea Nitrogen) 15 mg/dL (9.8-20.1); Calc. Creatinine Clearance 90 mL/min (70-130); Calcium 11.3 mg/dL (7.8-10.44); Carbon Dioxide 27 mmol/L (23-31); Chloride 103 mmol/L (98-107); Estimated GFR-MDRD 69; Glucose 95 mg/dL (83-110); Potassium 3.7 mmol/L (3.5-5.1); Sodium 140 mmol/L (136-145)
[2018-10-25] MEDS ORDERED: Acetaminophen 500 MG TAB ONE (14:46)
[2018-10-25] MEDS ORDERED: Dexamethasone 20 MG/5 ML VIAL ONE (15:26)
[2018-10-25] MEDS ORDERED: PROPOFOL 200 MG/20 ML VIAL ONE (15:26)
[2018-10-25] MEDS ORDERED: Ondansetron PF 4 MG/2 ML Vial ONE (15:26)
[2018-10-25] MEDS ORDERED: Lidocaine 1% PF 5 ML VIAL ONE (15:26)
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
== END 2018-10-25 15:15 | disposition home or self-care (01) ==
LOC: SDC 10:58
PROVIDERS: ATTEND Orthopaedic Surgery
PROC: 0QPHX5Z Removal of External Fixation Device from Left Tibia, External Approach (ICD-10-PCS; principal; 2018-10-25)
DX: S82.142D Displaced bicondylar fracture of left tibia, subsequent encounter for closed fracture with routine healing (principal); S82.872D Displaced pilon fracture of left tibia, subsequent encounter for closed fracture with routine healing; I10 Essential (primary) hypertension; E78.00 Pure hypercholesterolemia, unspecified; Z79.899 Other long term (current) drug therapy
CPT/HCPCS: 80048; 85025; J0131; J0690; J1100; J2001; J2405; J2704; J3010; S0028